=== PATIENT | male | born 1975 | race Caucasian/White ===

== ENCOUNTER 2016-09-19 21:50 | Emergency (ER) | payer OTHER ==
[~2016-09-19] VITALS: Ht 190.5 cm; Wt 206.4 kg
[~2016-09-19 21:50] MED LIST: FLONS; HYDROCHLOROTHIA25 MG PO; XARELTO STARTER20 MG PO; ZOLOFT100 MG PO
[2016-09-19 22:35] VITALS: BP 151/126
== END 2016-09-20 00:51 | disposition home or self-care (01) ==
LOC: ED 21:50
DX: M19.072 Primary osteoarthritis, left ankle and foot (principal); Z91.013 Allergy to seafood; Z88.1 Allergy status to other antibiotic agents; I10 Essential (primary) hypertension
CPT/HCPCS: Q0092

== ENCOUNTER 2016-09-30 21:07 | Emergency (ER) | payer OTHER ==
[~2016-09-30] VITALS: Ht 190.5 cm; Wt 210.5 kg
[2016-10-01 04:06] VITALS: BP 132/61
== END 2016-10-01 04:06 | disposition home or self-care (01) ==
LOC: ED 21:07
DX: L03.116 Cellulitis of left lower limb (principal); I10 Essential (primary) hypertension; I82.409 Acute embolism and thrombosis of unspecified deep veins of unspecified lower extremity; Z88.1 Allergy status to other antibiotic agents; Z88.8 Allergy status to other drugs, medicaments and biological substances; Z91.013 Allergy to seafood; Z79.899 Other long term (current) drug therapy
CPT/HCPCS: Q0092

== ENCOUNTER 2018-09-04 14:41 | Inpatient (IN) | payer OTHER ==
[~2018-09-04] VITALS: Ht 188 cm; Wt 189.6 kg
[2018-09-04 14:50] VITALS: Ht 188 cm; Wt 189.6 kg
--- NOTE | 2018-09-04 16:38 | NUR ---
DR SORTO AT BEDSIDE FOR MSE.
[2018-09-04 17:01] LABS: BASOPHIL % 0.4 % (0-2); PLATELET COUNT 282 x10^3mcL (130-400); RED CELL DISTRIBUTION WIDTH 13.6 % (11.5-14.5)
[2018-09-04 17:07] LABS: CALCIUM 9.7 mg/dL (8.5-10.1); CARBON DIOXIDE 32.6 mmol/L (21-32); CHLORIDE SERUM 104 mmol/L (98-107); GFR1 > 60 mL/min; GLUCOSE SERUM 109 mg/dL (74-106); POTASSIUM SERUM 4.2 mmol/L (3.5-5.1); SODIUM SERUM 143 mmol/L (136-145)
--- NOTE | 2018-09-04 17:08 | NUR ---
XRAY AT BEDSIDE.
[2018-09-04 17:12] LABS: ALBUMIN 3.5 g/dL (3.4-5.0); ALKALINE PHOSPHATASE 61 U/L (46-116); ALT/SGPT 27 U/L (16-63); AST/SGOT 14 U/L (15-37); BILIRUBIN TOTAL 0.5 mg/dL (0.20-1.00); CHOLESTEROL 143 mg/dL (<200); CHOLESTEROL/HDL RATIO 3.3; HDL CHOLESTEROL 44 mg/dL (40-60); TOTAL PROTEIN, SERUM 7.2 g/dL (6.4-8.2); TRIGLYCERIDES 73 mg/dL (<150)
--- NOTE | 2018-09-04 18:03 | NUR ---
REPORT GIVEN TO DEAN MORELAND TO ASSUME CARE OF THE PT.
[2018-09-04 19:21] VITALS: BP 132/73
[2018-09-04 19:24] LABS: MAGNESIUM 2.1 mg/dL (1.8-2.4); PHOSPHOROUS 3.7 mg/dL (2.5-4.9)
--- NOTE | 2018-09-04 19:30 | NUR ---
RECEIVED PT FROM ER. PT ADMIT FOR UPPER GI BLEEDING, PT IS A/O X4, VERBAL REPSONSIVE, ABLE TO TELL WHAT HE NEEDS. LUNG SOUND CLEAR BILATERAL, NO COUGH, NO SOB, PT DENY ANY CHEST PAIN OR DISCOMFORT, BOWEL SOUND PRESENT ALL 4 QUADRANTS,NO DISTENTION, NO TENDER. PT STATE HAD 4 EPISODE OF DARK RED VOMITTING TODAY. DENY ANY N/V AT THIS MOMENT, DENY ANY ABD PAIN, STATE THE STOOL HE HAD TODAY IS NORMAL COLOR. PEDAL PULSE PRESENT BOTH FEET,NO EDEMA, THERE IS DISCOLORATION AT LLE. PT STATE HE HAD DVT 3 YEARS AGO, TOOK BLOOD THINNER FOR 6 MONTHS AFTER THAT, FOLLOW UP WITH PRIMARY DOCTOR. NO DVT AT THIS MOMENT, IV AT LEFT FA, NO LEAKING, NO INFILTRATION. ALL ADLS ASSIST, ALL NEED MET, CALL LIGHT IN REACH, WILL CONTINUE TO MONITOR.
[2018-09-04 19:33] LABS: T3 TOTAL 2.39 ng/mL
[2018-09-04 19:49] LABS: FREE T4 1.74 ng/dL (0.76-1.46)
[2018-09-04 20:11] LABS: T4(THYROXINE) 13.4 ug/dL (4.7-13.3)
--- NOTE | 2018-09-04 20:32 | NUR ---
DR. LARSEN AT BEDSIDE TO ASSESS THE PT.
--- NOTE | 2018-09-04 20:35 | NUR ---
RECIEVED PT FROM [facility]. NO COMPLAINTS OF PAIN AT THIS TIME. PT COMPLAINING OF NAUSEA, MEDICATED WITH PRN ZOFRAN. CALL LIGHT WITHIN REACH. BED AT LOWEST POSITION. WILL CONTINUE TO MONITOR.
[2018-09-04 22:37] LABS: microscopic required? NO
[2018-09-04 22:47] LABS: urine erythrocyte NEGATIVE (NEGATIVE)
[2018-09-04 23:14] LABS: AMPHETAMINE QUAL UR NONE DETECTED (See below)
--- NOTE | 2018-09-04 23:49 | NUR ---
PT COMPLAINING OF "ACID REFLUX BURNING IN HIS THROAT". DR. SCHMITT MADE AWARE. ALSO REQUESTED AM LABS FOR POSSIBLE EGD TOMORROW MORNING.
--- NOTE | 2018-09-05 02:14 | NUR ---
PT RESTING IN BED WITH EYES CLOSED. PT LAYING IN PRONE POSITION WITH FACE ON THE L SIDE. NO SIGNS OF DISTRESS NOTED. BREATHING EVEN/UNLABORED ON RA. CALL LIGHT WITHIN REACH, BED AT LOWEST POSITION. WILL CONTINUE TO MONITOR.
--- NOTE | 2018-09-05 02:17 | NUR ---
I HAVE REVIEWED THE DATA COLLECTION BY DEAN SEBASTIAN: COLUMBA ALCANTAR ENTERED ON 09/04-09/05 I CONCUR WITH THE DATA AND ANY EXCEPTIONS OR COMMENTS ARE LISTED BELOW:
[2018-09-05 05:52] VITALS: BP 116/59
[2018-09-05 06:31] LABS: BASOPHIL % 0.3 % (0-2); PLATELET COUNT 252 x10^3mcL (130-400); RED CELL DISTRIBUTION WIDTH 13.4 % (11.5-14.5)
[2018-09-05 06:33] LABS: CALCIUM 9.3 mg/dL (8.5-10.1); CARBON DIOXIDE 28.7 mmol/L (21-32); CHLORIDE SERUM 105 mmol/L (98-107); CREATININE SERUM 0.8 mg/dL (0.7-1.3); GFR1 > 60 mL/min; GLUCOSE SERUM 94 mg/dL (74-106); MAGNESIUM 1.8 mg/dL (1.8-2.4); PHOSPHOROUS 3.9 mg/dL (2.5-4.9); POTASSIUM SERUM 4.4 mmol/L (3.5-5.1); SODIUM SERUM 143 mmol/L (136-145)
--- NOTE | 2018-09-05 06:55 | NUR ---
PT RESTING IN BED COMFORTABLY WITH EYES CLOSED. NO S/S OF PAIN OR DISCOMFORT AT THIS TIME. NO SOB ON RA. NO S/S OF CHEST PAIN, N/V, OR PALPATATIONS. NO SIGNIFICANT CHANGES THIS SHIFT. CALL LIGHT WITHIN REACH, BED AT LOWEST POSITION. WILL ENDORSE TO DAY NURSE.
--- NOTE | 2018-09-05 07:25 | NUR ---
RECEIVED PT IN BED, AXOX4, VERBAL, MACANESE, CALM AND COPPERATIVE WITH POC, PERRLA, NO REDNESS/DRAINAGE, IN NO ACUTE RESP DISTRESS, ON RA, RESP EVEN AND NONLABORED, CTA, CHEST RISE SYMMETRICALLY, OBESE, ABD ROUND AND NON-TENDER TO TOUCH, SKIN W/C/I, AMBULATORY, CONTINENT, ABLE TO MOVE ALL EXTREMITIES, BS ACTIVE X 4, LAST BM 09/04, DIARRHEA X 1, LLE DISCOLORATION, ON SCD, IV PATENT AND INFUSIGN WELL, NPO FOR EGD PREP, ALL NEEDS MET, SAFETY PRECAUTION FOLLOWED, CONTINUE TO MONITOR AND F/U
[2018-09-05 08:46] VITALS: BP 108/63
--- NOTE | 2018-09-05 08:59 | NUR ---
PT TRANSFERED TO [facility] BED D/T BODY WEIGHT EXCEED LIMIT WEIGHT OF [facility] BED, TAKEN WELL, AWARE OF HOW TO USE BED, SAFETY PRECAUTION FOLLOWED, CONTINUE TO MONITOR
--- NOTE | 2018-09-05 09:37 | NUR ---
PT IN BED, IN NO ACUTE RESP DISTRESS, AM MED GIVEN PER MD ORDER VIA EMAR WITH 1 SIP OF WATER PER NPO ORDER, TAKEN WELL, NO ASE NOTED AT THIS TIME, CONTINUE TO MONITOR
--- NOTE | 2018-09-05 10:30 | NUR ---
PT WENT DOWN FOR EGD.CONSENT SIGNED.PRE OP CHECKLIST COMPLETED.REPORT GIVEN TO DEAN JAEGER IN GI LAB.
--- NOTE | 2018-09-05 10:48 | NUR ---
PT WENT TO GI LAB FOR EGD PROCEDURE, IN NO ACUTE RESP DISTRESS, CHARGE NURSE AND ROLA MORAN AWARE
--- NOTE | 2018-09-05 11:02 | NUR ---
I HAVE REVIEWED THE DATA COLLECTION BY DEAN SEBASTIAN (NAME): NICOLE MORELAND ENTERED ON (DATE/TIME):09/05/18 @ 1102 I CONCUR WITH THE DATA AND ANY EXCEPTIONS OR COMMENTS ARE LISTED BELOW:
--- NOTE | 2018-09-05 11:42 | NUR ---
PT BACK FROM EGD PROCEDURE, REPORT GIVEN AND NOTIFIED ROLA RN, PT IN NO ACUTE RESP DISTRESS, RESP EVEN AND NON-LABORED, CHEST RISE SYMMETRICALLY, ASSISTED BACK TO BED, V/S 124/68, 16, 64, 98.1, 96% AT RA, , SAFETY PRECAUTION FOLLOWED, CONTINUE TO MONITOR
[2018-09-05 12:04] VITALS: BP 114/69
--- NOTE | 2018-09-05 13:27 | NUR ---
PT SLEEPING IN BED, IN NO ACUTE RESP DISTRESS, SAFETY PRECAUTION FOLLOWED, CONTINUE TO MONITOR
[2018-09-05 14:41] VITALS: BP 114/69
[2018-09-05 14:46] VITALS: BP 114/69
--- NOTE | 2018-09-05 15:18 | NUR ---
PT AXOX4, LYING IN BED, AWARE OF RESULT OF EGD PROCEDURE, AWARE WILL BE D/C HOME TODAY AFTER MD CLARIFY DC ORDER, VERBALLY UNDERSTANDING, SAFETY PROTOCOL FOLLOWED, ALL NEEDS MET AT THIS TIME, CONTINUE TO MONITOR
--- NOTE | 2018-09-05 16:37 | NUR ---
PT DC TO HOME.IV D/C.DISCHARGE INSTRUCTION GIVEN.PT VERBALIZES UNDERSTANDING.WENT DOWN AMBULATORY ACCOMPANIED BY HARP REPAIRER.
--- NOTE | 2018-09-06 07:41 | NUR ---
ECHOCARDIOGRAM NOT DONE-DISCHARGED
== END 2018-09-05 16:35 | disposition home or self-care (01) | DRG 253 ==
LOC: ED 14:41 → MU 17:52
PROVIDERS: Internal Medicine Gastroenterology; Specialist; ADMIT Internal Medicine
PROC: 0DB68ZX Excision of Stomach, Via Natural or Artificial Opening Endoscopic, Diagnostic (ICD-10-PCS; principal; 2018-09-05 12:30)
DX: K92.0 Hematemesis (principal); E87.2 Acidosis; F41.8 Other specified anxiety disorders; K21.9 Gastro-esophageal reflux disease without esophagitis; I10 Essential (primary) hypertension; E66.9 Obesity, unspecified; E05.90 Thyrotoxicosis, unspecified without thyrotoxic crisis or storm; F12.90 Cannabis use, unspecified, uncomplicated; Z88.8 Allergy status to other drugs, medicaments and biological substances; Z88.1 Allergy status to other antibiotic agents; Z91.013 Allergy to seafood; Z86.718 Personal history of other venous thrombosis and embolism; Z83.3 Family history of diabetes mellitus; Z82.49 Family history of ischemic heart disease and other diseases of the circulatory system; Z68.43 Body mass index [BMI] 50.0-59.9, adult
CPT/HCPCS: 43235; 84439; C9113; G0378; J1200; J1610; J2250; J2310; J2405; J3010; J3490; J7030; J7042; Q0092

== ENCOUNTER 2018-10-01 16:54 | Emergency (ER) | payer OTHER ==
[~2018-10-01] VITALS: Ht 188 cm; Wt 186.9 kg
[2018-10-01 16:56] VITALS: Ht 188 cm; Wt 186.9 kg
[2018-10-01 21:37] VITALS: BP 127/89
[2018-10-01 22:05] LABS: AMPHETAMINE QUAL UR NONE DETECTED (See below)
== END 2018-10-01 21:37 | disposition home or self-care (01) ==
LOC: ED 16:54
PROVIDERS: Emergency Medicine
DX: F41.9 Anxiety disorder, unspecified (principal); F12.10 Cannabis abuse, uncomplicated; I10 Essential (primary) hypertension; F32.9 Major depressive disorder, single episode, unspecified; Z88.1 Allergy status to other antibiotic agents; Z91.013 Allergy to seafood